=== PATIENT | male | born 1980 | race Caucasian/White ===

== ENCOUNTER 2020-06-03 23:10 | Emergency (ER) | payer OTHER ==
[~2020-06-03] VITALS: Ht 185.4 cm; Wt 86.2 kg
[2020-06-03 23:49] LABS: HEMOGLOBIN 13.9 gm/dL (14.0-18.0); MCH 28.5 pg (26.0-34.0); MCHC 33.2 g/dL (28.0-37.0); MCV 85.9 fL (80.0-100.0); MPV 8.6 fl. (7.2-11.1); RBC 4.89 mil/uL (4.50-6.00); RDW-CV 13.8 % (10.5-14.5); WBC 9.9 thou/uL (4.0-11.0)
[2020-06-04 00:27] LABS: CALCIUM 9.1 mg/dL (8.5-10.1); CREATININE 0.9 mg/dL (0.6-1.3); POTASSIUM 3.7 mmol/L (3.5-5.1)
[2020-06-04 07:00] VITALS: BP 156/101
== END 2020-06-04 07:00 | disposition home or self-care (01) ==
LOC: M.ERS 23:10
PROVIDERS: Personal Emergency Response Attendant
DX: T17.298A Other foreign object in pharynx causing other injury, initial encounter (principal); I10 Essential (primary) hypertension; X58.XXXA Exposure to other specified factors, initial encounter; Y93.89 Activity, other specified; Y92.89 Other specified places as the place of occurrence of the external cause; Y99.8 Other external cause status